=== PATIENT | female | born 1995 | race Caucasian/White ===

== ENCOUNTER → 2017-03-07 | Outpatient (CLI) | payer OTHER ==
[~2017-03-07] MED LIST: ALBU90OI INH; AMOCLA875 PO; Bactrim Ds Tab1 EACH PO; HYDR1TAB94 PO; IBUP800 PO; METPRE4DP PO; Monodox100 MG PO; Norco 5-325 Ta1 EACH PO; Percocet 5-3251 EACH PO; SPACE CHAMBER1 EACH MC; Ultram50 MG PO; Veetids 500500 MG PO; Verotin-Gr Cap1 EACH PO
[2017-03-07 11:52] LABS: Specimen Source URINE
[2017-03-08 03:10] LABS: Source Urine
== END | disposition home or self-care (01) ==
LOC: LAB 11:50
PROVIDERS: Advanced Practice Midwife
DX: Z11.3 Encounter for screening for infections with a predominantly sexual mode of transmission (principal)
CPT/HCPCS: 87491; 87591

== ENCOUNTER 2017-07-24 22:16 | Inpatient (IN) | payer OTHER ==
[~2017-07-24] VITALS: Ht 154.9 cm; Wt 56.4 kg
[~2017-07-24 22:16] MED LIST changes: -IBUP800 PO; -Percocet 5-3251 EACH PO; -Verotin-Gr Cap1 EACH PO
[2017-07-25 01:14] LABS: BASOPHILS ABSOLUTE AUTO 0.04 K/mm3 (0.00-0.23); BASOPHILS PERCENT AUTO 0 % (0-2); EOSINOPHILS ABSOLUTE AUTO 0.03 K/mm3 (0.00-0.68); EOSINOPHILS PERCENT AUTO 0 % (0-6); Hematocrit 38.1 % (33.0-51.0); Hemoglobin 13.6 g/dL (11.5-16.0); IMMATURE GRAN ABSOLUTE AUTO 0.15 K/mm3 (0.00-0.10); IMMATURE GRAN PERCENT AUTO 1 % (0-1); LYMPHOCYTES ABSOLUTE AUTO 2.14 K/mm3 (0.84-5.20); LYMPHOCYTES PERCENT AUTO 11 % (21-46); MONOCYTES ABSOLUTE AUTO 1.68 K/mm3 (0.16-1.47); MONOCYTES PERCENT AUTO 8 % (4-13); Mean Corpuscular HGB 30.2 pg (26.0-34.0); Mean Corpuscular HGB Conc 35.7 g/dL (31.5-36.5); Mean Corpuscular Volume 85 fL (80-100); Mean Platelet Volume 10.8 fL (9.1-12.4); NEUTROPHILS ABSOLUTE AUTO 16.42 K/mm3 (1.96-9.15); NEUTROPHILS PERCENT AUTO 80 % (41-73); Platelet Count 194 K/mm3 (150-400); RDW Coefficient Variation 13.5 % (11.7-14.2); RDW Standard Deviation 41.1 fL (35.1-46.3); White Blood Cell Count 20.46 K/mm3 (4.00-11.30)
[2017-07-25] MEDS ORDERED: Verotin-Gr Cap1 EACH PO (02:12)
[2017-07-25 15:37] LABS: PCO2 Cord - Arterial 49.4 mmHg (40-50); pH Cord - Arterial 7.31 (7.28-7.35)
[2017-07-25 15:38] LABS: PO2 Cord - Arterial < 12 mmHg (16-20)
[2017-07-25 15:39] LABS: PCO2 Cord - Venous 43.8 mmHg (40-50); PO2 Cord - Venous 18.3 mmHg (28-32); pH Umbilical Cord - Venous 7.36 (7.26-7.35)
[2017-07-26 06:47] LABS: BASOPHILS ABSOLUTE AUTO 0.03 K/mm3 (0.00-0.23); BASOPHILS PERCENT AUTO 0 % (0-2); EOSINOPHILS ABSOLUTE AUTO 0.02 K/mm3 (0.00-0.68); EOSINOPHILS PERCENT AUTO 0 % (0-6); Hemoglobin 9.5 g/dL (11.5-16.0); IMMATURE GRAN ABSOLUTE AUTO 0.17 K/mm3 (0.00-0.10); IMMATURE GRAN PERCENT AUTO 1 % (0-1); LYMPHOCYTES ABSOLUTE AUTO 2.29 K/mm3 (0.84-5.20); LYMPHOCYTES PERCENT AUTO 11 % (21-46); MONOCYTES ABSOLUTE AUTO 1.54 K/mm3 (0.16-1.47); MONOCYTES PERCENT AUTO 8 % (4-13); Mean Corpuscular HGB 30.6 pg (26.0-34.0); Mean Corpuscular HGB Conc 35.2 g/dL (31.5-36.5); Mean Corpuscular Volume 87 fL (80-100); Mean Platelet Volume 10.8 fL (9.1-12.4); NEUTROPHILS ABSOLUTE AUTO 16.13 K/mm3 (1.96-9.15); NEUTROPHILS PERCENT AUTO 80 % (41-73); Platelet Count 115 K/mm3 (150-400); RDW Coefficient Variation 13.7 % (11.7-14.2); RDW Standard Deviation 42.7 fL (35.1-46.3); White Blood Cell Count 20.18 K/mm3 (4.00-11.30)
[2017-07-27] MEDS ORDERED: Percocet 5-3251 EACH PO (12:17)
[2017-07-27] MEDS ORDERED: IBUP800 PO (12:18)
== END 2017-07-27 12:36 | disposition home or self-care (01) | DRG 765 ==
LOC: BC 22:16
PROVIDERS: Obstetrics & Gynecology
PROC: 3E0134Z Introduction of Serum, Toxoid and Vaccine into Subcutaneous Tissue, Percutaneous Approach (ICD-10-PCS; 2017-07-25)
PROC: 3E0234Z Introduction of Serum, Toxoid and Vaccine into Muscle, Percutaneous Approach (ICD-10-PCS; 2017-07-25)
PROC: 10D00Z1 Extraction of Products of Conception, Low, Open Approach (ICD-10-PCS; principal; 2017-07-25 14:23)
DX: O62.0 Primary inadequate contractions (principal); O99.12 Other diseases of the blood and blood-forming organs and certain disorders involving the immune mechanism complicating childbirth; D68.51 Activated protein C resistance; Z37.0 Single live birth; O42.92 Full-term premature rupture of membranes, unspecified as to length of time between rupture and onset of labor; Z3A.40 40 weeks gestation of pregnancy; Z23 Encounter for immunization; O77.0 Labor and delivery complicated by meconium in amniotic fluid
CPT/HCPCS: 36415; 51702; 59025; 82803; 85025; 87210; 99214; J0290; J0690; J0694; J1100; J1885; J2370; J2405; J2590; J2765; J3010; J7120